=== PATIENT | male | born 1940 | race Caucasian/White ===

== ENCOUNTER → 2016-03-14 | Outpatient (CLI) | payer OTHER, MEDICARE | LOC: BHFA 09:45 | PROVIDERS: ATTEND Internal Medicine Cardiovascular Disease | DX: I25.10 Atherosclerotic heart disease of native coronary artery without angina pectoris (principal); I10 Essential (primary) hypertension; E78.2 Mixed hyperlipidemia; I71.2 Thoracic aortic aneurysm, without rupture ==

== ENCOUNTER → 2017-07-09 | Outpatient (CLI) | payer OTHER, MEDICARE | LOC: BMCIMAGING 08:00 | PROVIDERS: ATTEND Urology | DX: N40.1 Benign prostatic hyperplasia with lower urinary tract symptoms (principal) ==

== ENCOUNTER → 2017-07-10 | Outpatient (CLI) | payer OTHER, MEDICARE | LOC: BHFA 08:30 | PROVIDERS: ATTEND Internal Medicine Cardiovascular Disease | DX: I71.9 Aortic aneurysm of unspecified site, without rupture (principal) ==

== ENCOUNTER 2017-07-16 14:12 | Emergency (ER) | payer OTHER, MEDICARE ==
[2017-07-16] MEDS ORDERED: NS 1,000 ML IV ONE (14:28)
--- NOTE | 2017-07-16 14:28 | EDPHY ---
H & P Stated Complaint: complications after procedure Time Seen by Provider: 07/16/17 14:21 HPI/ROS: CHIEF COMPLAINT: Medication effect HISTORY OF PRESENT ILLNESS: The patient is a 76-year-old man who had an outpatient prostate procedure this morning. In preparation for the procedure he took Percocet at home and then received intrarectal opiates in the office. He tolerated the procedure well but afterwards was overly sedated. He was taken to the urgent care across the hallway and there was noticed to have low blood pressure. They called an ambulance and brought him here. He received Narcan at the urgent care and also in route. He is receive 4 mg total. He is now awake and alert and states that he has no complaints. His blood pressures remained slightly low. He denies bleeding or pain. No vomiting or diarrhea. No chest pain or shortness of breath. REVIEW OF SYSTEMS: Constitutional: denies: chills, fever, recent illness, recent injury EENTM: denies: blurred vision, double vision, nose congestion Respiratory: denies: cough, shortness of breath Cardiac: denies: chest pain, irregular heart rate, lightheadedness, palpitations Gastrointestinal/Abdominal: denies: abdominal pain, diarrhea, nausea, vomiting, blood streaked stools Genitourinary: See HPI Musculoskeletal: denies: joint pain, muscle pain Skin: denies: lesions, rash, jaundice, bruising Neurological: denies: headache, numbness, paresthesia, tingling, dizziness, weakness Hematologic/Lymphatic: denies: blood clots, easy bleeding, easy bruising Immunologic/allergic: denies: HIV/AIDS, transplant EXAM: GENERAL: Well-appearing, well-nourished and in no acute distress. HEAD: Atraumatic, normocephalic. EYES: Pupils equal round and reactive to light, extraocular movements intact, sclera anicteric, conjunctiva are normal. ENT: TMs normal, nares patent, oropharynx clear without exudates. Moist mucous membranes. NECK: Normal range of motion, supple without lymphadenopathy or JVD. LUNGS: Breath sounds clear to auscultation bilaterally and equal. No wheezes rales or rhonchi. HEART: Regular rate and rhythm without murmurs, rubs or gallops. ABDOMEN: Soft, nontender, normoactive bowel sounds. No guarding, no rebound. No masses appreciated. : Ruff catheter in place, no bleeding erythema. BACK: No CVA tenderness, no spinal tenderness, step-offs or deformities EXTREMITIES: Normal range of motion, no pitting or edema. No clubbing or cyanosis. NEUROLOGICAL: Cranial nerves II through XII grossly intact. Normal speech, normal gait. 5/5 strength, normal movement in all extremities, normal sensation PSYCH: Normal mood, normal affect. SKIN: Warm, dry, normal turgor, no visible rashes or lesions. Source: Patient Exam Limitations: No limitations - Medical/Surgical History Hx Asthma: No Hx Chronic Respiratory Disease: No Hx Diabetes: No Hx Cardiac Disease: No Hx Renal Disease: No Hx Cirrhosis: No Other PMH: HTN, prostate - Family History Significant Family History: No pertinent family hx - Social History Alcohol Use: Sober Drug Use: None Constitutional: Initial Vital Signs Temperature (C) 36.4 C 07/16/17 14:17 Heart Rate 53 L 07/16/17 14:17 Respiratory Rate 18 07/16/17 14:17 Blood Pressure 98/68 L 07/16/17 14:17 O2 Sat (%) 95 07/16/17 14:17 O2 Delivery Mode Room Air Allergies/Adverse Reactions: No Known Allergies Allergy (Unverified 07/16/17 14:17) Medical Decision Making ED Course/Re-evaluation: Patient is currently well-appearing and asymptomatic. He has slightly low blood pressure. We will continue to hydrate and observed. 3:45 p.m. I spoke with the physician who cared for Mr. Osorioed all during the procedure. She states that he received it belladonna/opium suppositories just prior to the procedure. They were out of the larger dose so he received two. This would have doubled up the belladonna compared to typical dosing. Patient is doing much better. His blood pressure is currently 110/75 he is awake and alert in eating. 4:15 p.m. the patient is very eager to go home. He has been eating. He has been ambulating. His vital signs have been stable. Differential Diagnosis: Partial list of the Differential diagnosis considered include but were not limited to; medication reaction and although unlikely based on the history and physical exam, I also considered cardiac disease, PE, pneumothorax. - Data Points Medications Given: Discontinued Medications Sodium Chloride (Ns) 1,000 mls @ 0 mls/hr IV EDNOW ONE; Wide Open PRN Reason: Protocol Stop: 07/16/17 14:29 Last Admin: 07/16/17 14:33 Dose: 1,000 mls Departure - Departure Disposition: Home, Routine, Self-Care Clinical Impression: Medication reaction Qualifiers: Encounter type: initial encounter Qualified Code(s): T88.7XXA - Unspecified adverse effect of drug or medicament, initial encounter Condition: Fair Instructions: Pain Management (ED) Referrals: Loyda Worthington MD [Primary Care Provider] - As per Instructions
[2017-07-16 16:05] VITALS: BP 120/76
== END 2017-07-16 16:30 | disposition home or self-care (01) ==
LOC: EDUNIT#
DX: R03.1 Nonspecific low blood-pressure reading (principal); I10 Essential (primary) hypertension; E86.9 Volume depletion, unspecified; T50.995A Adverse effect of other drugs, medicaments and biological substances, initial encounter

== ENCOUNTER → 2017-07-16 | Outpatient (CLI) | payer OTHER, MEDICARE | LOC: BMCIMAGING 08:49 | PROVIDERS: ATTEND Urology | DX: N40.1 Benign prostatic hyperplasia with lower urinary tract symptoms (principal) ==

== ENCOUNTER → 2018-04-09 | Outpatient (CLI) | payer OTHER, MEDICARE ==
[~2018-04-09] MED LIST: GADOBUTROL 10 ML VIAL IVP ONE
== END ==
LOC: FIMAGING 07:28
PROVIDERS: ATTEND Urology
DX: N40.0 Benign prostatic hyperplasia without lower urinary tract symptoms (principal); R97.20 Elevated prostate specific antigen [PSA]
CPT/HCPCS: 72197; 76377; A9585; 82565-PO